=== PATIENT | female | born 1955 ===

== ENCOUNTER → 2020-11-18 14:11 | Outpatient (CLI) | payer OTHER | END | disposition home or self-care (01) | LOC: PPH VACUNA 14:11 | DX: Z23 Encounter for immunization (principal) ==

== ENCOUNTER 2021-04-02 08:00 | Outpatient (CLI) | payer OTHER | END 2021-04-02 08:30 | disposition home or self-care (01) | LOC: PPH VACUNA 08:00 | DX: Z23 Encounter for immunization (principal) ==